=== PATIENT | male | born 1945 | race Caucasian/White ===

== ENCOUNTER 2017-11-06 05:24 | Inpatient (IN) | payer OTHER ==
[2017-10-24 11:33] VITALS: BMI 25.0
--- NOTE | 2017-10-24 12:13 | PAT Medication Instructions ---
Service Date Oct 24, 2017. Current Home Medication List Fish Oil ([place]-3), 1 CAP PO NOON Nicotine Polacrilex (Nicorette 2MG Gum), 4 MG PO DAILY Ocuvite Preservision (Ocuvite Preservision), 1 TAB PO BID Omeprazole (Prilosec), 40 MG PO QAM Saline (Saline Nasal [place]), 1 SPRAY CHET DIRECTED Wheat Dextrin (Benefiber), 10 ML PO TID Medication Instructions For Your Scheduled Surgery - Hold the following medications as of 10/24/17: Fish Oil ([place]-3), 1 CAP PO NOON - Hold the following medications the morning of surgery: Nicotine Polacrilex (Nicorette 2MG Gum), 4 MG PO DAILY Wheat Dextrin (Benefiber), 10 ML PO TID Ocuvite Preservision (Ocuvite Preservision), 1 TAB PO BID - Take the following medications the morning of surgery with a sip of water OTHERWISE NOTHING TO EAT OR DRINK AFTER MIDNIGHT: Saline (Saline Nasal [place]), 1 SPRAY CHET DIRECTED Omeprazole (Prilosec), 40 MG PO QAM - Take the following medications as scheduled the night before surgery: Wheat Dextrin (Benefiber), 10 ML PO TID Ocuvite Preservision (Ocuvite Preservision), 1 TAB PO BID If you have any questions please call us at [phone] or [phone] or [phone]
[2017-10-24 12:54] LABS: BASO % 0.4 %; BASO ABS # 0.03 K/uL (0-0.2); EOS % 2.4 %; EOS ABS # 0.18 K/uL (0-0.5); HEMATOCRIT 53.1 % (42-52); HEMOGLOBIN 18.5 g/dL (14.0-18.0); IG# 0.01 K/uL (0.00-0.02); LYMPH % 39.7 %; LYMPH ABS # 2.95 K/uL (1.2-3.4); MEAN CELL VOLUME 96.7 fL (80-100); MEAN CORPUSCULAR HEMOGLOBIN 33.7 pg (25-34); MEAN CORPUSCULAR HGB CONC 34.8 g/dl (32-36); MEAN PLATELET VOLUME 9.8 fL (7.4-10.4); MONO % 10.6 %; MONO ABS # 0.79 K/uL (0.11-0.59); NEUT % 46.8 %; NEUT ABS # 3.47 K/uL (1.4-6.5); PLATELET COUNT 278 K/uL (130-400); RED CELL DISTRIBUTION WIDTH CV 14.2 % (11.5-14.5); RED CELL DISTRIBUTION WIDTH SD 50.8 fL (36.4-46.3); WHITE BLOOD COUNT 7.43 K/uL (4.8-10.8)
--- NOTE | 2017-10-24 13:10 | DIAGNOSTIC IMAGING REPORT ---
CHEST 2 VIEWS ROUTINE HISTORY: Preop. COMPARISON: None. FINDINGS: The lungs are clear. Cardiac silhouette is normal in size. No pleural effusions. No pneumothorax. IMPRESSION: No acute process. Electronically signed by: Rick Contreras M.D. 10/24/2017 1:09 PM Dictated Date/Time: 10/24/2017 1:06 PM
[2017-10-24 14:45] LABS: ALBUMIN 4.2 gm/dl (3.4-5.0); ALT/SGPT 44 U/L (12-78); AST/SGOT 26 U/L (15-37); BLOOD UREA NITROGEN 13 mg/dl (7-18); CALCIUM 9.2 mg/dl (8.5-10.1); CARBON DIOXIDE 32 mmol/L (21-32); CREATININE 1.17 mg/dl (0.60-1.40); GLUCOSE 84 mg/dl (70-99); POTASSIUM 4.3 mmol/L (3.5-5.1); SODIUM 136 mmol/L (136-145)
[2017-10-24 14:46] LABS: ALKALINE PHOSPHATASE 89 U/L (45-117); TOTAL PROTEIN 8.6 gm/dl (6.4-8.2)
[2017-11-06] VITALS (9 sets, daily range): BP systolic 115–146; BP diastolic 66–76; PULSE 54–85; TEMP 36.5–37.1; O2SAT 94–99; Ht 170.2 cm; Wt 74.3 kg
[~2017-11-06] VITALS: Ht 170.2 cm; Wt 74.3 kg
[~2017-11-06 05:24] MED LIST: MULT-190 PO; NICO2GUM7 PO; OMEG10007 PO; PRLSR20 PO; SALI1SPR3 NAE; WHEATAB2 PO
[2017-11-06] MEDS ORDERED: HEPARIN SOD 5000 UNIT/0.5 ML CARP SQ SCH (06:00)
[2017-11-06] MEDS ORDERED: LACTATED RINGER'S 1000ML 1,000 ML IV SCH (06:00)
[2017-11-06] MEDS ORDERED: CEFAZOLIN 1000MG IV PUSH 5 ML IV SCH (06:00)
[2017-11-06] MEDS ORDERED: HEPARIN SOD 5000 UNIT/0.5 ML CARP ONE ×2 (06:12→07:02)
[2017-11-06] MEDS ORDERED: CEFAZOLIN SOD 2000MG/10 ML IV PUSH IV ONE (06:12)
[2017-11-06] MEDS ORDERED: GLYCOPYRROLATE INJ 0.2 MG/ML VIAL ONE (06:55)
[2017-11-06] MEDS ORDERED: MIDAZOLAM HCL 1 MG/ML 2ML VIAL ONE (06:55)
[2017-11-06] MEDS ORDERED: SUCCINYLCHOLINE CHLORIDE 20 MG/ML 10 ML VIAL IV ONE (06:55)
[2017-11-06] MEDS ORDERED: PROPOFOL IV EMULSION 10 MG/ML 20 ML VIAL IV ONE (06:55)
[2017-11-06] MEDS ORDERED: NEOSTIGMINE METHYLSULFATE 5 MG/5 ML SYR ONE (06:55)
[2017-11-06] MEDS ORDERED: ONDANSETRON INJ 2 MG/ML 2 ML VIAL ONE ×2 (06:55→11:58)
[2017-11-06] MEDS ORDERED: LIDOCAINE HCL 2% 2 ML VIAL (20MG/ML) ONE (06:55)
[2017-11-06] MEDS ORDERED: FENTANYL CITRATE INJ 50 MCG/1 ML 2 ML VIAL ONE ×2 (06:55→11:58)
[2017-11-06] MEDS ORDERED: EpHEDrine SULFATE INJ 50 MG/ML AMP ONE (06:55)
[2017-11-06] MEDS ORDERED: DEXAMETHASONE SOD INJ 4 MG/ML VIAL ONE (06:55)
[2017-11-06] MEDS ORDERED: PHENYLEPHRINE HCL INJ 10 MG/ML VIAL ONE (06:55)
[2017-11-06] MEDS ORDERED: BUPIVACAINE 0.5 % 5 MG/1 ML MPF 30ML VIAL ONE (07:23)
--- NOTE | 2017-11-06 07:33 | History & Physical Bridge Note ---
H&P Re-Evaluation Bridge Note: I have examined the patient, reviewed the History & Physical and in the interval since the performance of the History & Physical I have noted the following changes of clinical significance: No changes noted
[2017-11-06] MEDS ORDERED: HYDROmorphone INJ 2 MG/ML SYR/VIAL ONE (09:02)
[2017-11-06] MEDS ORDERED: PROMETHAZINE HCL INJ 12.5 MG in SODIUM CHLORIDE 0.9% 50ML 50 ML IV PRN (10:00)
[2017-11-06] MEDS ORDERED: ONDANSETRON INJ 2 MG/ML 2 ML VIAL IV PRN ×2 (10:00→12:15)
[2017-11-06] MEDS ORDERED: FLUMAZENIL 0.1 MG/1 ML 10 ML VIAL IV PRN (10:00)
[2017-11-06] MEDS ORDERED: ATROPINE SULFATE 0.1 MG/ML 5ML SYR IV PRN (10:00)
[2017-11-06] MEDS ORDERED: NALOXONE HCL 0.4 MG/1 ML VIAL/CARP IV PRN (10:00)
[2017-11-06] MEDS ORDERED: LABETALOL HCL IV 5 MG/ML 20ML IV PRN (10:00)
[2017-11-06] MEDS ORDERED: EpHEDrine SULFATE INJ 50 MG/ML AMP IV PRN (10:00)
[2017-11-06] MEDS ORDERED: FLOSEAL HEMOSTATIC MATRIX 10ML TOP ONE (10:24)
[2017-11-06] MEDS ORDERED: CISATRACURIUM BESYLATE IV SOLN 2 MG/ML 10 ML VIAL ONE (11:58)
--- NOTE | 2017-11-06 12:10 | [facility] Post Operative Brief Note ---
Immediate Operative Summary Operative Date Nov 06, 2017. Pre-Operative Diagnosis Prostate Cancer Post-Operative Diagnosis Same Procedure(s) Performed Robot Asst. Laparoscopic Radical Prostatectomy with bilateral lymph node dissection Surgeon Mati Wire Inserter Surgeon(s) Faustino Colin Estimated Blood Loss 100 Findings Abdomen with mild adhesions. Prostate without obvious issues. Specimens 1. Radical Prostatectomy 2. Left Lymph Node Sampling 3. Right Lymph Node Sampling Drains 18 Fr Silicon Catheter Anesthesia General Complication(s) None Disposition Recovery Room / PACU
[2017-11-06] MEDS ORDERED: SODIUM CHLORIDE 0.65% NA SOLN 45 ML (OCEAN) NAE PRN (12:15)
[2017-11-06] MEDS ORDERED: OXYCODONE/ACETAMINOPHEN 7.5-325 TAB PO PRN (12:15)
[2017-11-06] MEDS ORDERED: KETOROLAC TROMETHAMINE 15 MG/ML VIAL IV PRN (12:15)
[2017-11-06] MEDS ORDERED: OXYBUTYNIN CHLORIDE 5 MG TAB PO PRN (12:15)
[2017-11-06] MEDS ORDERED: HYDROmorphone INJ 1 MG/ML SYR IV PRN (12:15)
[2017-11-06] MEDS ORDERED: CEFAZOLIN IV 2,000 MG in DEXTROSE 5% 50ML 50 ML IV SCH (12:15)
[2017-11-06] MEDS: HYDROmorphone INJ 1 MG/ML SYR IV PRN ×4 (12:28→13:13)
[2017-11-06 12:52] LABS: HEMATOCRIT 50.6 % (42-52); HEMOGLOBIN 17.2 g/dL (14.0-18.0); MEAN CELL VOLUME 95.8 fL (80-100); MEAN CORPUSCULAR HEMOGLOBIN 32.6 pg (25-34); MEAN PLATELET VOLUME 9.3 fL (7.4-10.4); PLATELET COUNT 295 K/uL (130-400); RED CELL DISTRIBUTION WIDTH CV 13.8 % (11.5-14.5); RED CELL DISTRIBUTION WIDTH SD 48.9 fL (36.4-46.3); WHITE BLOOD COUNT 15.95 K/uL (4.8-10.8)
[2017-11-06 13:15] LABS: CALCIUM 8.7 mg/dl (8.5-10.1); CREATININE 1.42 mg/dl (0.60-1.40); POTASSIUM 3.5 mmol/L (3.5-5.1)
--- NOTE | 2017-11-06 13:19 | Anesthesiology Progress Note ---
Anesthesia Post Op Note Date & Time Nov 06, 2017 at 13:18 Vital Signs Pain Intensity: 3 Vital Signs Past 12 Hours Date Time Temp Pulse Resp B/P (MAP) Pulse Ox O2 Delivery O2 Flow Rate FiO2 11/06/17 12:20 36.4 67 16 152/88 99 Oxymask 7 11/06/17 06:16 37.1 54 18 132/75 98 Room Air Notes Mental Status: alert / awake / arousable, participated in evaluation Pt Amnestic to Procedure: Yes Nausea / Vomiting: adequately controlled Pain: adequately controlled Airway Patency, RR, SpO2: stable & adequate BP & HR: stable & adequate Hydration State: stable & adequate Anesthetic Complications: no major complications apparent no c/o of visual disturbances/acuity.
[2017-11-06] MEDS: LACTATED RINGER'S 1000ML 1,000 ML IV SCH ×2 (13:57→20:27)
[2017-11-06 15:50] LABS: PTT PATIENT 22.4 SECONDS (21.0-31.0)
[2017-11-06] MEDS: NICOTINE POLACRILEX 2 MG GUM MT PRN ×2 (15:51→18:43)
[2017-11-06] MEDS: CEFAZOLIN IV 2,000 MG in SYRINGE 0 ML IV SCH ×2 (15:51→23:28)
--- NOTE | 2017-11-06 16:35 | [facility] Operative Report ---
Operative Report Operative Date Nov 06, 2017. Pre-Operative Diagnosis 4+3 Intermediate Risk Prostate Cancer Post-Operative Diagnosis Same Procedure(s) Performed Radical Prostatectomy with bilateral lymph node sampling Surgeon Mati Spiritual Advisor Surgeon(s) Cristi Harmon Estimated Blood Loss 100 Findings No obvious issues in abdomen. Prostate resected without issue. Specimens 1. Radical Prostate with vas and seminal vesicles 2. Left Lymph Node Sampling 3. Right Lymph Node Sampling Drains 18 Fr Mai Anesthesia General Complication(s) None Disposition Recovery Room / PACU Indications Patient with intermediate risk prostate cancer. Risks and benefits discussed at length with patient. Patient elected to proceed to radical surgery. Description of Procedure Patient was consented and brought back to the operating room. Patient was placed under anesthesia in the supine position. Patient was then transferred to the dorsal lithotomy position with Trendelenburg. Patient was prepped and draped in the regular sterile fashion. A time out was completed. An david was made superior to the umbilicus and local anesthetic was placed. An incision was made into the skin and bovie was used to open the subcutaneous tissues. The Varess needle was place. A syringe with saline confirmed placement. Insufflation was initiated. Once complete, the camera port was placed, and the camera taken into the abdomen. The abdomen was inspected. No areas of concern noted. The working ports were then marked and anesthetized. The 8mm ports were placed on the left and right. A 10 mm regulatory affairs assistant port and 5 mm regulatory affairs assistant port were also placed. With all ports in place, the robot was positioned and docked. The working arms were placed and the instruments passed under direct visualization. With the robot docked, I took position at the console. The sigmoid colon was mobilized out of the pelvis and adhesions were lysed. The pelvis was examined. Patient was noted to have a small left inguinal hernia. The peritoneum posterior to the bladder was opened and the vas deferens were exposed. Dissection of the cord were taken laterally. They were clipped and cut and mobilized. The seminal vesicle were then exposed and dissected. The lateral vessels were clipped and dissected. The posterior dissection was taken as distal as feasible. Care to limit electrocautery at the lateral aspects were taken. With posterior dissection complete, the median ligaments were identified and dissection was taken directly lateral after opening the peritoneum. The posterior pubic bone was exposed. The median ligaments were then sealed and cut and the bladder dropped. The dorsal prostate was cleared and the endopelvic fascia was opened to allow lateral dissection. The puboprostatic ligaments were then dissected. The dorsal venous bundle were tied with a 1-0 PDS suture and anchored to the pubic bone. Attention was then taken to the bladder neck. With manipulation of the mai, the edge was marked and dissection was taken. The bladder neck was opened and the tissues dissected. The mai was retracted and used for retraction of the prostate. The posterior bladder neck was dissected after visualizing the ureters. No significant median lobe was appreciate. The seminal vesicles were exposed and utilized for retraction. At this point, the prostatic pedicles were dissected and isolated first on the right than on the left. These were clipped and dissected. Care was taken to maintain the lateral neurovascular bundle. A nerve sparing radicle prostatectomy was carried out. Once the pedicle was freed , the posterior prostate was dissected. All bleeding was controlled. The lateral bundles were preserved. The apex of the prostate was then dissected laterally to the creping machine operator. The dorsal veins were cut with the monopolar scissors. The apex of the prostate was then dissected opening the urethra. Cold cutting was used in this region. The urethral stump was maintained. The prostate was then dissected free. The prostate and seminal vesicle with partial vas deferens were bagged. The nodes along the obturator and iliac vessels bilaterally were dissected distally to the node of Tu. This were clipped on each end and sent as node sampling. Care was taken to identify the vessels and the obturator nerve. The wound bed was inspected and found to be free of major bleeding or injury. Lateral neurovascular bundles were identified. The bed had first Surgicel than yovany-seal placed to assist with hemostasis. A 3-0 Vicryl suture was used to reposition the posterior bladder and posterior periurethral tissues and reapproximate Denonvilliers's fascia. A barbed suture was then passed after being interlocked with another and a running anastomosis of the bladder neck to the urethral mucous was completed. The UO's were identified during closure. With anastomosis complete, the bladder was irrigated and no drainage was appreciated. The area was irrigated and suctioned. No bleeding was observed. Surgicel was placed at the anterior bladder as well as the posterior peritoneal opening. The specimens were bagged. The robot was undocked. Insufflation was released. The ports were removed. The umbilical opening was extended and the fascia excised. The specimens were passed through this opening. The fascia was closed with a running PDS suture. The subcutaneous tissues were reapproximated with an interrupted Vicryl suture. The skin at all incisions were closed with a running subcuticular Monocryl suture. The patient was cleaned and Dermabond adhesive was placed. Tia Harmon was scrubbed the entire case and assisted with positioning, port placement, robot docking, instrument and suture passing, and bedside assisted. She also assisted with closure and undocking. Dr. Douglas Colni assisted during dissection and anatomic identification. The patient was cleaned, aroused from anesthesia, and transferred to the pacu in stable condition having tolerated the procedure well with no complications. I was present and participated in all aspects of the procedure. I attest to the content of the Intraoperative Record and any orders documented therein. Any exceptions are noted below.
[2017-11-06] MEDS: ACETAMINOPHEN 500 MG TAB PO SCH ×2 (18:40→23:29)
[2017-11-06] MEDS: HEPARIN SOD 5000 UNIT/0.5 ML CARP SQ SCH (19:06)
[2017-11-06] MEDS: DOCUSATE SODIUM 100 MG CAP PO SCH (21:37)
[2017-11-06] MEDS: CEROVITE ADV FORMULA TAB PO SCH (21:37)
[2017-11-07 03:32] VITALS: BP 112/62; PULSE 75; TEMP 37.2; O2SAT 93
[2017-11-07] MEDS: LACTATED RINGER'S 1000ML 1,000 ML IV SCH (05:10)
[2017-11-07] MEDS: HEPARIN SOD 5000 UNIT/0.5 ML CARP SQ SCH (06:12)
[2017-11-07] MEDS: ACETAMINOPHEN 500 MG TAB PO SCH ×2 (06:13→12:18)
[2017-11-07 07:35] LABS: BASO % 0.2 %; BASO ABS # 0.02 K/uL (0-0.2); EOS % 0.1 %; EOS ABS # 0.01 K/uL (0-0.5); HEMATOCRIT 41.4 % (42-52); HEMOGLOBIN 14.2 g/dL (14.0-18.0); IG# 0.02 K/uL (0.00-0.02); LYMPH % 19.6 %; LYMPH ABS # 2.42 K/uL (1.2-3.4); MEAN CELL VOLUME 95.2 fL (80-100); MEAN CORPUSCULAR HEMOGLOBIN 32.6 pg (25-34); MEAN CORPUSCULAR HGB CONC 34.3 g/dl (32-36); MEAN PLATELET VOLUME 9.3 fL (7.4-10.4); MONO % 9.6 %; MONO ABS # 1.18 K/uL (0.11-0.59); NEUT % 70.3 %; NEUT ABS # 8.68 K/uL (1.4-6.5); PLATELET COUNT 259 K/uL (130-400); RED CELL DISTRIBUTION WIDTH CV 14.1 % (11.5-14.5); RED CELL DISTRIBUTION WIDTH SD 49.1 fL (36.4-46.3); WHITE BLOOD COUNT 12.33 K/uL (4.8-10.8)
[2017-11-07 07:46] LABS: CALCIUM 8.5 mg/dl (8.5-10.1); CREATININE 1.19 mg/dl (0.60-1.40)
[2017-11-07] MEDS ORDERED: CLC100 PO (08:17)
[2017-11-07] MEDS ORDERED: DTR5 PO (08:17)
[2017-11-07] MEDS ORDERED: OXYC7.5T62 PO (08:17)
[2017-11-07] MEDS ORDERED: POLY335019 PO (08:17)
--- NOTE | 2017-11-07 08:18 | Discharge Instructions ---
Discharge Instructions Date of Service Nov 06, 2017. Admission Reason for Admission: Prostate Cancer Discharge Discharge Diagnosis / Problem: Prostate Cancer Discharge Goals Goal(s): Decrease discomfort, Increase independence, Improve disease control, Therapeutic intervention Activity Recommendations Activity Limitations: as noted below Shower/Bathe: tomorrow . Instructions / Follow-Up Instructions / Follow-Up 1. Do not lift >15lbs x 6 weeks. 2. No heavy exercise x 6 weeks. You may engage in light activity such as walking and stairs as tolerated. 3. No sexual intercourse until cleared by . 4. Do not drive x [address] while taking narcotics. 5. Finish all of the antibiotic you have been prescribed. 6. Immediately call our office at [phone] if your catheter is removed for any reason. 7. Follow-up as scheduled. Please call our office at [phone] if you need to reschedule for any reason. . Current Hospital Diet Patient's current hospital diet: Clear Liquid Diet Discharge Diet Recommended Diet: Regular Diet Procedures Procedures Performed: Robot Asst. Laparoscopic Radical Prostatectomy with bilateral lymph node dissection Pending Studies Studies pending at discharge: yes (prostate and lymph nodes) List of pending studies: prostate and lymph nodes Medical Emergencies . Who to Call and When: Medical Emergencies: If at any time you feel your situation is an emergency, please call 911 immediately. . Non-Emergent Contact Non-Emergency issues call your: Urologist Call Non-Emergent contact if: temperature is above 101.5, your pain is not controlled, your pain is worsening, your pain is unusual for you, your pain is concerning you, wound has increased drainage, wound has increased redness, wound has increased pain, you have any medication questions . . "Provider Documentation" section prepared by Tia Harmon. . VTE Core Measure Inpt VTE Proph given/why not?: Unfractionated heparin SQ, SCD's [place] Drug Monitoring Program Search Results: patient reviewed within database, no issues identified
[2017-11-07 08:37] VITALS: BP 114/67; PULSE 87; TEMP 37.6; O2SAT 93
--- NOTE | 2017-11-07 08:44 | Anesthesiology Progress Note ---
Anesthesia Post Op Note Date & Time Nov 07, 2017 at 08:43 Vital Signs Pain Intensity: 0.0 Vital Signs Past 12 Hours Date Time Temp Pulse Resp B/P (MAP) Pulse Ox O2 Delivery O2 Flow Rate FiO2 11/07/17 08:37 37.6 87 16 114/67 (83) 93 Room Air 11/07/17 03:32 37.2 75 16 112/62 (79) 93 Room Air 11/06/17 23:20 Room Air 11/06/17 23:08 37.1 74 16 115/69 (84) 94 Room Air Notes Mental Status: alert / awake / arousable, participated in evaluation Pt Amnestic to Procedure: Yes Nausea / Vomiting: adequately controlled Pain: adequately controlled Airway Patency, RR, SpO2: stable & adequate BP & HR: stable & adequate Hydration State: stable & adequate Anesthetic Complications: no major complications apparent
[2017-11-07] MEDS ORDERED: PANTOprazole SOD 40 MG TAB PO SCH (09:00)
[2017-11-07] MEDS ORDERED: POLYETHYLENE (MIRALAX) 17 GM PACK PO SCH (09:00)
[2017-11-07] MEDS: CEROVITE ADV FORMULA TAB PO SCH (09:16)
[2017-11-07] MEDS: DOCUSATE SODIUM 100 MG CAP PO SCH (09:17)
[2017-11-07] MEDS: CEFAZOLIN IV 2,000 MG in SYRINGE 0 ML IV SCH (09:25)
--- NOTE | 2017-11-07 10:22 | Clinical Documentation Query ---
CLINICAL DOCUMENTATION QUERY Dr. COULTER, In your clinical opinion is this patient being managed for: ( ) Acute blood loss anemia ( ) Not Agree ( ) Other explanation of clinical findings (Please Explain) (X) Unable to determine (Please Define) ( ) Need to Discuss Likely combination of factors including dilutional effect of IV fluid and fluid retention after surgery. Post operative HB was 17.2 Patient has no signs of acute bleed and is stable. The medical record reflects the following clinical findings, treatment, and risk factors. Clinical Indicators: 72 yo male presenting with prostate cancer for prostatectomy. Baseline Hgb 18.5, Hct 53.1 which has trended down to Hgb 14.2 and Hct 41.4. EBL was 100 cc Treatment: monitor PRP's, IV fluids Risk Factors: expected blood loss from surgery Please clarify and document your clinical opinion in the progress notes and discharge summary. Terms such as "probable", "suspected", "likely", "questionable", "possible", or "still to be ruled out" are acceptable. IF IN AGREEMENT, YOU MUST DOCUMENT ABOVE DIAGNOSTIC STATEMENT IN DAILY PROGRESS NOTES AND DISCHARGE SUMMARY. This document is not part of the patient's record. Thank You, Zayda Connors, RN [phone]
--- NOTE | 2017-11-07 10:24 | Clinical Documentation Query ---
CLINICAL DOCUMENTATION QUERY Ms. BEARD, In your clinical opinion is this patient being managed for: ( ) Acute blood loss anemia (X ) Not Agree ( ) Other explanation of clinical findings (Please Explain) ( ) Unable to determine (Please Define) ( ) Need to Discuss The medical record reflects the following clinical findings, treatment, and risk factors. Clinical Indicators: 72 yo male presenting with prostate cancer for prostatectomy. Baseline Hgb 18.5, Hct 53.1 which has trended down to Hgb 14.2 and Hct 41.4. EBL was 100 cc Treatment: monitor PRP's, IV fluids Risk Factors: expected blood loss from surgery Please clarify and document your clinical opinion in the progress notes and discharge summary. Terms such as "probable", "suspected", "likely", "questionable", "possible", or "still to be ruled out" are acceptable. IF IN AGREEMENT, YOU MUST DOCUMENT ABOVE DIAGNOSTIC STATEMENT IN DAILY PROGRESS NOTES AND DISCHARGE SUMMARY. This document is not part of the patient's record. Thank You, Zayda Connors RN [phone]
[2017-11-07 11:32] VITALS: BP 120/72; PULSE 78; TEMP 36.6; O2SAT 95
[2017-11-07] MEDS ORDERED: NURSING VERBAL MED ORDER ONE (12:30)
--- NOTE | 2017-11-07 13:00 | Discharge Summary ---
Discharge Summary Date of Service Nov 07, 2017. Admission Date/Reason Nov 06, 2017 at 07:28 Prostate Cancer. Discharge Date/Disposition Nov 07, 2017 Home Diagnosis Principal Diagnosis: Prostate Cancer Secondary Diagnoses/Problems: None Procedure(s) Performed RALP with bilateral PLND Vaccinations None Consultations None Medication Reconciliation See Medication list with discharge sheet and rec Admission Physical Exam As per Admitting History & Physical. Hospital Course Patient was admitted for planned RALP and bilateral PLND for Intermediate risk prostate cancer. Patient had procedure and tolerated well. Was admitted for monitoring postoperatively. Evening of POD0 patient was ambulating and started clear liquid diet. Continued to ambulate POD1 and tolerated diet. SLowly advanced. Catheter is in place and will keep until followup. Patient pain controlled. No Nausea or vomiting. Doing well. Ready for discharge. Discharge Instructions Please refer to the electronic Patient Visit Report (Discharge Instructions) for additional information.
--- NOTE | 2017-11-07 13:03 | Progress Note ---
Subjective Date of Service: Nov 07, 2017. Subjective Pt evaluation today including: conversation w/ patient, physical exam, chart review, lab review POD 1 Doing well. Ambulating. Tole diet. OOB. NO issues with catheter. No F/C Pain well controlled. Mild discomfort in groin. Not severe. Problem List Prostate Cancer Review of Systems All Other Systems: Reviewed and Negative Objective Vital Signs Date Time Temp Pulse Resp B/P (MAP) Pulse Ox O2 Delivery O2 Flow Rate FiO2 11/07/17 11:32 36.6 78 16 120/72 (88) 95 Room Air 11/07/17 08:37 37.6 87 16 114/67 (83) 93 Room Air 11/07/17 03:32 37.2 75 16 112/62 (79) 93 Room Air 11/06/17 23:20 Room Air 11/06/17 23:08 37.1 74 16 115/69 (84) 94 Room Air 11/06/17 20:00 96 Room Air 11/06/17 18:45 36.6 85 18 130/76 (94) 97 Nasal Cannula 2.0 11/06/17 16:40 36.6 74 18 117/66 (83) 99 Nasal Cannula 3.0 11/06/17 15:40 36.5 60 18 123/75 (91) 96 Nasal Cannula 3.0 11/06/17 15:35 Nasal Cannula 3.0 11/06/17 14:40 77 16 146/72 (96) 96 Nasal Cannula 2.0 11/06/17 14:06 36.6 56 20 119/68 (85) 98 Nasal Cannula 2.0 11/06/17 13:40 95 Nasal Cannula 2.0 11/06/17 13:40 95 Nasal Cannula 2.0 11/06/17 13:40 36.6 75 18 126/68 (87) 95 Nasal Cannula 2.0 11/06/17 13:31 36.5 153/77 11/06/17 13:30 74 18 98 11/06/17 13:30 75 18 11/06/17 13:25 68 11/06/17 13:25 68 16 95 11/06/17 13:20 72 14 11/06/17 13:20 72 14 97 11/06/17 13:17 130/64 11/06/17 13:15 61 14 95 11/06/17 13:15 63 14 11/06/17 13:11 146/73 11/06/17 13:10 78 10 98 11/06/17 13:10 78 10 11/06/17 13:05 70 16 140/106 97 11/06/17 13:05 69 16 Physical Exam General Appearance: WD/WN, no apparent distress Eyes: normal inspection ENT: normal ENT inspection Neck: supple, no JVD Respiratory/Chest: normal breath sounds, no respiratory distress, no accessory muscle use Cardiovascular: regular rate, rhythm, no edema Abdomen: non tender, soft, no organomegaly, no pulsatile mass, + distended Extremities: normal range of motion, non-tender, normal inspection, no pedal edema, no calf tenderness Neurologic/Psychiatric: checkman II-XII nml as tested, no motor/sensory deficits, alert, normal mood/affect, oriented x 3 Skin: normal color, warm/dry, no rash Lymphatic: no adenopathy Laboratory Results Last 24 Hours Test 11/06/17 15:13 11/07/17 07:03 Prothrombin Time 10.0 SECONDS Prothromb Time International Ratio 1.0 Activated Partial Thromboplast Time 22.4 SECONDS Partial Thromboplastin Ratio 0.9 White Blood Count 12.33 K/uL Red Blood Count 4.35 M/uL Hemoglobin 14.2 g/dL Hematocrit 41.4 % Mean Corpuscular Volume 95.2 fL Mean Corpuscular Hemoglobin 32.6 pg Mean Corpuscular Hemoglobin Concent 34.3 g/dl Platelet Count 259 K/uL Mean Platelet Volume 9.3 fL Neutrophils (%) (Auto) 70.3 % Lymphocytes (%) (Auto) 19.6 % Monocytes (%) (Auto) 9.6 % Eosinophils (%) (Auto) 0.1 % Basophils (%) (Auto) 0.2 % Neutrophils # (Auto) 8.68 K/uL Lymphocytes # (Auto) 2.42 K/uL Monocytes # (Auto) 1.18 K/uL Eosinophils # (Auto) 0.01 K/uL Basophils # (Auto) 0.02 K/uL RDW Standard Deviation 49.1 fL RDW Coefficient of Variation 14.1 % Immature Granulocyte % (Auto) 0.2 % Immature Granulocyte # (Auto) 0.02 K/uL Sodium Level 137 mmol/L Potassium Level 4.0 mmol/L Chloride Level 105 mmol/L Carbon Dioxide Level 27 mmol/L Anion Gap 5.0 mmol/L Blood Urea Nitrogen 15 mg/dl Creatinine 1.19 mg/dl Est Creatinine Clear Calc Drug Dose 54.0 ml/min Estimated GFR () 71.3 Estimated GFR (Non- 61.5 BUN/Creatinine Ratio 13.0 Random Glucose 93 mg/dl Calcium Level 8.5 mg/dl Assessment and Plan POD 1 s/p RALP with b/l PLND Continue to ambulate. Monitor this AM. Plan to discharge today as long as pain well controlled.
[2017-11-07 14:46] VITALS: BP 120/72; PULSE 78; TEMP 36.6; O2SAT 95
== END 2017-11-07 16:20 | disposition home or self-care (01) | DRG 708 ==
LOC: C.ACU 05:24 → C.MSW 07:28 → ENRESERV 12:46
PROVIDERS: ADMIT Urology; ATTEND Urology
PROC: 0VT34ZZ Resection of Bilateral Seminal Vesicles, Percutaneous Endoscopic Approach (ICD-10-PCS; principal; 2017-11-06 07:30)
PROC: 8E0W4CZ Robotic Assisted Procedure of Trunk Region, Percutaneous Endoscopic Approach (ICD-10-PCS; principal; 2017-11-06 07:30)
PROC: 0VT04ZZ Resection of Prostate, Percutaneous Endoscopic Approach (ICD-10-PCS; principal; 2017-11-06 07:30)
PROC: 0VB Male Reproductive System, Excision (ICD-10-PCS; principal; 2017-11-06 07:30)
PROC: 07BH4ZX Excision of Right Inguinal Lymphatic, Percutaneous Endoscopic Approach, Diagnostic (ICD-10-PCS; principal; 2017-11-06 07:30)
PROC: 07BJ4ZX Excision of Left Inguinal Lymphatic, Percutaneous Endoscopic Approach, Diagnostic (ICD-10-PCS; principal; 2017-11-06 07:30)
DX: C61 Malignant neoplasm of prostate (principal); Z79.899 Other long term (current) drug therapy; Z87.891 Personal history of nicotine dependence; Z82.49 Family history of ischemic heart disease and other diseases of the circulatory system; Z80.0 Family history of malignant neoplasm of digestive organs; Z83.3 Family history of diabetes mellitus